=== PATIENT | male | born 2000 | race Caucasian/White ===

== ENCOUNTER 2023-01-10 12:35 | Emergency (ER) | payer OTHER, SELFPAY ==
[2023-01-10 12:51] VITALS: BP 163/98; PULSE 81; RESP 16; TEMP 36.4; O2SAT 100
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
== END 2023-01-10 13:15 | disposition short-term general hospital (02) ==
PROVIDERS: Emergency Provider Nurse Practitioner Family
DX: S30.1XXA Contusion of abdominal wall, initial encounter (principal); V86.09XA Driver of other special all-terrain or other off-road motor vehicle injured in traffic accident, initial encounter
CPT/HCPCS: 81003; 99212; G0463

== ENCOUNTER 2023-01-10 13:32 | Emergency (ER) | payer OTHER, SELFPAY ==
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
[2023-01-10 13:51] VITALS: BP 149/98; PULSE 106; RESP 16; TEMP 36.4; O2SAT 100
[2023-01-10 14:26] LABS: Basophils Absolute Auto 0.1 K/mm3 (0.0-0.1); Basophils Percent Auto 0.6 % (0.2-1.2); Eosinophils Absolute Auto 0.4 K/mm3 (0-0.3); Eosinophils Percent Auto 5.1 % (0-4.4); Hematocrit 45.7 % (42.0-52.0); Hemoglobin 15.8 g/dL (14.0-18.0); Immature Granulocyte Absolute 0.05 K/mm3 (0.00-0.031); Immature Granulocyte Percent A 0.6 % (0-0.5); Lymphocytes Absolute Auto 2.34 K/mm3 (0.9-3.2); Mean Corpuscular HGB Conc 34.6 g/dl (32-36); Mean Corpuscular Hemoglobin 29.5 pg (26-34); Mean Corpuscular Volume 85.4 fl (80-100); Mean Platelet Volume 9.4 fl (7.4-10.4); Monocytes Absolute Auto 0.6 K/mm3 (0.1-0.6); Monocytes Percent Auto 7.8 % (2.6-8.5); Neutrophils Absolute Auto 4.6 K/mm3 (1.3-6.7); Neutrophils Percent Auto 56.9 % (45.5-73.1); Platelet Count Result 232 k/mm3 (150-375); Red Blood Count 5.35 M/mm3 (4.6-6.20); White Blood Count 8.1 K/mm3 (4.5-10.0)
[2023-01-10 14:34] LABS: Appearance Urine Clear (Clear); Bilirubin Urine Negative (Negative); Blood Urine Negative (Negative); Color Urine Yellow (Yellow); Glucose Urine UA Negative (Negative); Ketones Urine Negative (Negative); Leukocyte Esterase Ur Negative LEU/UL (Negative); Nitrate Urine Negative (Negative); Protein Urine Negative (Negative); Specific Grav Ur 1.019 (1.001-1.035); pH Urine 5.5 (5.0-9.0)
[2023-01-10 14:37] LABS: INR 0.9; Partial Thromboplastin Time 25.1 SECONDS (22.3-36.8); Prothrombin Time 12.7 Seconds (11.1-14.7)
[2023-01-10 14:40] LABS: Add Urine Microscopic? NO
[2023-01-10 14:45] LABS: Alanine Aminotransferase 84 U/L (6-50); Albumin Level 4.8 g/dL (3.5-5.1); Alkaline Phosphatase 77 U/L (38-126); Anion Gap 9 mmol/L (8-16); Aspartate Amino Transferase 59 U/L (17-59); Bilirubin,Total 1.8 mg/dL (0.2-1.3); Blood Urea Nitrogen 17 mg/dL (9-20); Calcium 9.1 mg/dL (8.4-10.2); Carbon Dioxide 26 mmol/L (22-30); Chloride 102 mmol/L (98-107); Estimated CRCL calculation 116 ml/min; Estimated Glomerular Filt Rate > 60; Glucose 93 mg/dL (65-110); Potassium 3.7 mmol/L (3.4-5.0); Sodium 137 mmol/L (137-145)
[2023-01-10 15:43] LABS: Lactic Acid Reflex 1.2 mmol/L (0.7-2.0)
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
[2023-01-10 18:30] VITALS: BP 136/73; PULSE 82; RESP 18; O2SAT 100
== END 2023-01-10 19:13 | disposition home or self-care (01) ==
PROVIDERS: Emergency Provider Emergency Medicine
DX: S30.1XXA Contusion of abdominal wall, initial encounter (principal); K76.0 Fatty (change of) liver, not elsewhere classified; V86.55XA Driver of 3- or 4- wheeled all-terrain vehicle (ATV) injured in nontraffic accident, initial encounter
CPT/HCPCS: 36415; 71260; 74177; 80053; 81003; 83605; 85025; 85610; 85730; 86850; 86900; 86901; 99284; Q9967

== ENCOUNTER 2023-03-11 05:19 | Emergency (ER) | payer OTHER, SELFPAY ==
[2023-03-11 05:23] VITALS: BP 151/97; PULSE 86; RESP 14; TEMP 36.2; O2SAT 100
[2023-03-11] MEDS: KETOROLAC 30 MG/ML VIAL (*BKC) IM (08:04)
[2023-03-11 08:45] LABS: Basophils Absolute Auto 0.1 K/mm3 (0.0-0.1); Basophils Percent Auto 0.6 % (0.2-1.2); Eosinophils Absolute Auto 0.8 K/mm3 (0-0.3); Eosinophils Percent Auto 8.7 % (0-4.4); Immature Granulocyte Absolute 0.03 K/mm3 (0.00-0.031); Immature Granulocyte Percent A 0.3 % (0-0.5); Lymphocytes Absolute Auto 2.25 K/mm3 (0.9-3.2); Lymphocytes Percent Auto 25.4 % (18.3-44.2); Mean Corpuscular Hemoglobin 29.5 pg (26-34); Mean Corpuscular Volume 86.6 fl (80-100); Mean Platelet Volume 9.8 fl (7.4-10.4); Monocytes Absolute Auto 0.7 K/mm3 (0.1-0.6); Monocytes Percent Auto 8.2 % (2.6-8.5); Neutrophils Percent Auto 56.8 % (45.5-73.1); Platelet Count Result 222 k/mm3 (150-375); Red Blood Count 5.43 M/mm3 (4.6-6.20); Red Cell Distribution Width 11.6 % (11.5-14.5); White Blood Count 8.9 K/mm3 (4.5-10.0)
[2023-03-11 08:55] LABS: Alanine Aminotransferase 60 U/L (6-50); Albumin Level 4.5 g/dL (3.5-5.1); Alkaline Phosphatase 58 U/L (38-126); Anion Gap 11 mmol/L (8-16); Aspartate Amino Transferase 39 U/L (17-59); Bilirubin,Total 1.4 mg/dL (0.2-1.3); Blood Urea Nitrogen 15 mg/dL (9-20); Calcium 9.4 mg/dL (8.4-10.2); Carbon Dioxide 21 mmol/L (22-30); Chloride 107 mmol/L (98-107); Estimated CRCL calculation 133 ml/min; Estimated Glomerular Filt Rate > 60; Glucose 94 mg/dL (65-110); Potassium 4.2 mmol/L (3.4-5.0); Sodium 139 mmol/L (137-145); Uric Acid 9.2 mg/dL (3.5-8.5)
[2023-03-11 09:16] LABS: Erythrocyte Sedimentation Rate 1 mm/hr (0-20)
--- NOTE | 2023-03-11 09:38 | ED.EXTPRO ---
HPI - Extremity Problem General Chief complaint: Extremity Problem,Nontraumatic Stated complaint: right foot pain Time Seen by Provider: 03/11/23 07:33 History of Present Illness HPI Narrative: Pt presents with non right foot pain without injury. Pt first noticed pain across top of fooot two days ago and then worsenend overnight last night to where covers hurt and pt unable to bear weight on foot. Pt denies fever or other jt pain. Pt has no history of similar. Related Data Allergies Allergy/AdvReac Type Severity Reaction Status Date / Time No Known Allergies Allergy Verified 03/11/23 05:20 Review of Systems Review of Systems: All systems reviewed & are unremarkable except as noted in HPI and below Exam Const: General: healthy appearing Nutritional Appearance: well nourished Orientation/consciousness: patient oriented x3 Limitations: no limitations Resp: Effort & Inspection: normal respiratory effort Cardio: Rate: regular rate Rhythm: regular rhythm GI: GI Palp: Yes Soft to palpation Auscultation: normal bowel sounds Skin: General skin exam: normal color Rashes: no rashes Wounds: no wounds Neuro: General: patient oriented x3, moves all extremities and no focal motor deficits Extrem: General: normal to inspection and no clubbing, cyanosis or edema Other: no swelling or erythema to foot, pulses intact foot pink and warm tender across top of foot at MTP joints but not 1st mtp joint Psych: Mental Status: mental status grossly normal Affect: normal affect Attitude: cooperative Course Vital Signs Vital signs: Vital Signs Temperature 97.2 F L 03/11/23 05:23 Pulse Rate 86 03/11/23 05:23 Respiratory Rate 14 03/11/23 05:23 Blood Pressure 151/97 H 03/11/23 05:23 Pulse Oximetry 100 03/11/23 05:23 Temperature 97.2 F L 03/11/23 05:23 Pulse Rate 88 03/11/23 10:00 Respiratory Rate 16 03/11/23 10:00 Blood Pressure 135/94 H 03/11/23 10:00 Pulse Oximetry 98 03/11/23 10:00 MDM - Extremity (Nontraumatic) MDM Narrative Medical decision making narrative: no definite injury will check x rays and labs. could be gout but not classic presentation. does not appear to be vascular. uric acid elevated other labs and x rays normal. silverio start on indocin and norco and have follow up with podiatry. Lab Data 03/11/23 08:34 03/11/23 08:34 Labs: Lab Results 03/11/23 Range/Units 08:34 WBC 8.9 (4.5-10.0) K/mm3 RBC 5.43 (4.6-6.20) M/mm3 Hgb 16.0 (14.0-18.0) g/dL Hct 47.0 (42.0-52.0) % MCV 86.6 (80-100) fl MCH 29.5 (26-34) pg MCHC 34.0 (32-36) g/dl RDW 11.6 (11.5-14.5) % Plt Count 222 (150-375) k/mm3 MPV 9.8 (7.4-10.4) fl Immature Gran % (Auto) 0.3 (0-0.5) % Neut % (Auto) 56.8 (45.5-73.1) % Lymph % (Auto) 25.4 (18.3-44.2) % Talbot % (Auto) 8.2 (2.6-8.5) % Eos % (Auto) 8.7 H (0-4.4) % Baso % (Auto) 0.6 (0.2-1.2) % Lymph # (Auto) 2.25 (0.9-3.2) K/mm3 Talbot # (Auto) 0.7 H (0.1-0.6) K/mm3 Eos # (Auto) 0.8 H (0-0.3) K/mm3 Baso # (Auto) 0.1 (0.0-0.1) K/mm3 Abs Immat Gran (auto) 0.03 (0.00-0.031) K/mm3 Absolute Neuts (auto) 5.0 (1.3-6.7) K/mm3 Absolute Nucleated RBC 0.0 (0.0-0.012) K/mm3 Nucleated RBC % 0.0 (0.0-0.2) % ESR 1 (0-20) mm/hr Sodium 139 (137-145) mmol/L Potassium 4.2 (3.4-5.0) mmol/L Chloride 107 (98-107) mmol/L Carbon Dioxide 21 L (22-30) mmol/L Anion Gap 11 (8-16) mmol/L BUN 15 (9-20) mg/dL Creatinine 1.10 (0.7-1.3) mg/dL Estim Creat Clear Calc 133 ml/min Estimated GFR > 60 (59 - ) Glucose 94 (65-110) mg/dL Uric Acid 9.2 H (3.5-8.5) mg/dL Calcium 9.4 (8.4-10.2) mg/dL Total Bilirubin 1.4 H (0.2-1.3) mg/dL AST 39 (17-59) U/L ALT 60 H (6-50) U/L Alkaline Phosphatase 58 (38-126) U/L Total Protein 8.0 (6.3-8.2) g/dL Albumin 4.5 (3.5-5.1) g/dL Discharge Plan Discharge Clinical Impression: Arthralgia of ri
[2023-03-11 10:00] VITALS: BP 135/94; PULSE 88; RESP 16; O2SAT 98
== END 2023-03-11 10:00 | disposition home or self-care (01) ==
PROVIDERS: Emergency Provider Emergency Medicine
DX: M25.571 Pain in right ankle and joints of right foot (principal)
CPT/HCPCS: 36415; 73610; 73630; 80053; 84550; 85025; 85652; 96372; 99283; J1885

== ENCOUNTER 2023-06-23 10:54 | Emergency (ER) | payer OTHER, SELFPAY ==
[2023-06-23] VITALS (30 sets, daily range): BP systolic 123–148; BP diastolic 72–96; PULSE 107–127; RESP 16–40; TEMP 36.9; O2SAT 96–100
--- NOTE | ~2023-06-23 | NM_ITS ---
NM lung vent and perfusion INDICATION: Pulmonary embolism. Chest pain. TECHNIQUE: The patient inhaled aerosolized 19.6 mCi xenon-133. Following ventilation scan, 5.5 mCi T c 99m MAA was injected intravenously for perfusion images. Multiple images were then acquired. COMPARISON: Chest x-ray dated 06/23/2023 FINDINGS: The comparison chest radiograph demonstrates no pulmonary infiltrates or pleural fluid. The re is a small ventilation/perfusion mismatch in the right lower lobe. IMPRESSION: 1: Low probability for pulmonary embolism. Reviewed, dictated and finalized at location B. O MECHANIC APPRENTICE
--- NOTE | ~2023-06-23 | XR_ITS ---
EXAMINATION: XR chest 2V 06/23/2023 12:33 INDICATION: Chest pain PROCEDURE: 2 view chest COMPARISON: No prior studies for comparison. FINDINGS: The lungs are clear. The cardiomediastinal silhouette is within normal limits. There are no pleural effusions. There is no pneumothorax suspected. IMPRESSION: 1: NO ACUTE CARDIOPULMONARY DISEASE. Reviewed, dictated and finalized at location B. CARVER HAND
--- NOTE | ~2023-06-23 | CT_ITS ---
EXAMINATION: CTA chest PE abdomen pel DATE: 06/23/2023 14:04 [employer] INDICATION: Pulmonary embolism. TECHNIQUE: Computed tomographic angiography (CTA) of the chest, abdomen, and pelvis was performed wit h 100 cc Omnipaque 350with 100 mL Omnipaque-350 intravenous contrast. The dose-length product was 372 9.78 mGy-cm. Maximum intensity projection 3D-reconstructions of the aorta and other arteries were con structed by the technologist on a separate workstation. Automated exposure control and iterative reconstruction technique were employed. COMPARISON: CT dated 01/10/2023 FINDINGS: CHEST CTA: Study is nondiagnostic for evaluation of pulmonary embolism. There is residual thymic tissue in the a nterior mediastinum. There is bilateral gynecomastia. No evidence for aortic aneurysm or dissection. No thoracic lymphadenopathy. There is an accessory splenule. No focal airspace consolidation. No pneu mothorax. No endobronchial lesions. ABDOMEN AND PELVIS CTA: Fatty infiltration of the liver. Gallbladder is present. The spleen, pancreas, adrenal glands and kid neys are unremarkable. There are accessory splenules. Nonobstructive bowel gas pattern. No significan t vascular abnormality. No lymphadenopathy. No free air or free fluid. No acute osseous abnormality. IMPRESSION: 1. Nondiagnostic study for evaluation of pulmonary embolism. No acute abnormality of the chest, abdom en or pelvis. Reviewed, dictated and finalized at location B. PROFESSIONALS IMPRESSION: 1. Nondiagnostic study for evaluation of pulmonary embolism. No acute abnormali ty of the chest, abdomen or pelvis.
--- NOTE | 2023-06-23 11:01 | ECG_ITS ---
Measurements Intervals [place] Rate: 120 P: 51 MS: 136 QRS: 55 QRSD: 75 T: 32 QT: 275 QTc: 389 Interpretive Statements SINUS TACHYCARDIA NO PREVIOUS ECG AVAILABLE FOR COMPARISON Electronically Signed On 06-23-2023 20:59:46 TYPE PHOTOGRAPHY SUPERVISOR by Peterson Moreno M.D.
--- NOTE | 2023-06-23 11:58 | ED.ABDPAIN ---
HPI - Abdominal Pain General Chief Complaint: Abdominal Pain Stated Complaint: abd pain, hematuria Time Seen by Provider: 06/23/23 11:56 History of Present Illness HPI narrative: Patient is a 23-year-old male here with multiple symptoms including abdominal pain, diarrhea, hematuria, chest pain, shortness of breath. He states that all the symptoms began on Val[place]. He notes that he was initially having some diffuse cramping abdominal pain associated with multiple episodes of diarrhea. This is not bloody. He notes he does have a history with some ongoing loose stools for which she takes fiber supplements that usually helps. He denies any fever chills. He denies any known sick contacts. On the 1st day of illness he additionally noted that he was having some chest tightness over the left side of his chest associated with some shortness of breath. He denies cough or congestion. He notes that the chest pain seems to have improved however he does continue to have a little bit of shortness of breath which she describes as difficulty taking a deep breath. He did take some Imodium yesterday which seems to have helped his diarrhea. His last episode of loose stools was yesterday. He did have 1 episode of emesis which occurred today while he was in the emergency department after getting an IV placed. He is not currently feeling nauseous. They did notice that he was having hematuria which she notes was orange in color and this prompted him to be seen in the emergency department. Related Data Allergies Allergy/AdvReac Type Severity Reaction Status Date / Time No Known Allergies Allergy Verified 03/11/23 05:20 Review of Systems Review of Systems: All systems reviewed & are unremarkable except as noted in HPI and below Exam Narrative: GENERAL: Well-appearing, well-nourished, and in no acute distress. HEAD: Normocephalic, atraumatic. EYES: PERRLA and EOMI. ENT: Nares clear. Mucous membranes moist. NECK: Supple. CHEST: Clear to auscultation. No respiratory distress. HEART: Regular rate and rhythm. Normal peripheral pulses. ABDOMEN: Soft, diffuse mild tenderness with no rebound or guarding. No CVA tenderness. Nondistended. EXTREMITIES: Normal range of motion. No edema. SKIN: Warm, dry, no rash. NEURO: No focal deficits. Alert and oriented x3. PSYCH: Normal mood and affect. Course Course Emergency Course: Chart review performed. Patient here for abdominal pain, diarrhea, hematuria, chest pain. Triage vitals show HTN, tachycardia. Last ED visit here was in February 2023 for ankle pain. Patient seen evaluated, nontoxic appearing. He is tachycardic and is having a multitude of symptoms. Will do cardiac workup as well as screening D-dimer, abdominal pain lab work. IV fluids ordered. D-dimer elevated, will to CTA of chest in addition to CT abdomen pelvis. CBC grossly unremarkable, CMP grossly unremarkable, bilirubin 1.5 however this seems to be in a normal range for him. Troponin negative. Lipase normal. COVID, influenza, RSV negative. Pending imaging and UA. CTA chest abdomen pelvis non diagnostic for PE, will rescan. CT abdomen pelvis negative. VQ scan negative for PE. UA negative for UTI, no blood or RBCs in urine. Patient reevaluated feeling much better after IVF. Will discharge home with PCP follow up. The results of pertinent diagnostic studies and exam findings were discussed. The patient?s provisional diagnosis and plan of care were discussed with the patient and present family. The patient and/or present family expressed understanding of the diagnosis and plan. The nurse was instructed to provide written instructions and appropriate follow-up information. The patient understands their need and responsibility to obtain additional follow-up as instructed. The risks of medications administered and prescribed were discussed with the patient and family present. Vital Signs Vital signs: Vital Signs Temperature 98.4
[2023-06-23 12:34] LABS: Basophils Percent Auto 0.2 % (0.2-1.2); Eosinophils Absolute Auto 0.4 K/mm3 (0-0.3); Eosinophils Percent Auto 3.7 % (0-4.4); Hematocrit 51.7 % (42.0-52.0); Hemoglobin 17.5 g/dL (14.0-18.0); Immature Granulocyte Absolute 0.04 K/mm3 (0.00-0.031); Immature Granulocyte Percent A 0.4 % (0-0.5); Lymphocytes Absolute Auto 0.73 K/mm3 (0.9-3.2); Lymphocytes Percent Auto 7.6 % (18.3-44.2); Mean Corpuscular HGB Conc 33.8 g/dl (32-36); Mean Corpuscular Hemoglobin 28.9 pg (26-34); Mean Corpuscular Volume 85.3 fl (80-100); Mean Platelet Volume 9.3 fl (7.4-10.4); Monocytes Absolute Auto 0.5 K/mm3 (0.1-0.6); Monocytes Percent Auto 5.1 % (2.6-8.5); Platelet Count Result 220 k/mm3 (150-375); Red Blood Count 6.06 M/mm3 (4.6-6.20); Red Cell Distribution Width 11.9 % (11.5-14.5); White Blood Count 9.6 K/mm3 (4.5-10.0)
[2023-06-23] MEDS: SODIUM CHLORIDE 0.9% IV 1,000 ML 999 ML IV CONT ×3 (12:40→15:03)
[2023-06-23 12:45] LABS: Lactic Acid Reflex 1.3 mmol/L (0.7-2.0)
[2023-06-23 12:46] LABS: Alanine Aminotransferase 37 U/L (6-50); Albumin Level 4.7 g/dL (3.5-5.1); Alkaline Phosphatase 69 U/L (38-126); Anion Gap 12 mmol/L (8-16); Aspartate Amino Transferase 31 U/L (17-59); Bilirubin,Total 1.5 mg/dL (0.2-1.3); Blood Urea Nitrogen 17 mg/dL (9-20); Calcium 9.4 mg/dL (8.4-10.2); Carbon Dioxide 25 mmol/L (22-30); Chloride 102 mmol/L (98-107); Creatine Kinase 111 U/L (55-170); Estimated CRCL calculation 111 ml/min; Estimated Glomerular Filt Rate > 60; Glucose 111 mg/dL (65-110); Lipase 48 U/L (23-300); Magnesium 1.9 mg/dL (1.6-2.3); Potassium 4.3 mmol/L (3.4-5.0); Sodium 139 mmol/L (137-145)
[2023-06-23 12:51] LABS: Prothrombin Time 13.5 Seconds (11.1-14.7)
[2023-06-23 12:52] LABS: Partial Thromboplastin Time 28.7 SECONDS (22.3-36.8)
[2023-06-23 12:58] LABS: Troponin I < 0.012 ng/mL (0.000-0.034)
--- NOTE | 2023-06-23 13:06 | PC.NURSE ---
pt is unable to void at this time but would like time to produce urine. pt has iv fluids infusing and is educated on using call light when they have the urge to urinate. no further orders at this time.
[2023-06-23 13:09] LABS: D Dimer 0.69 ug/mL (<0.48)
[2023-06-23 13:10] LABS: Influenza A QL RT-PCR Negative (Negative); Influenza B QL RT-PCR Negative (Negative); RSV RNA, RT-PCR Negative (Negative); SARS-CoV-2 RNA PCR Negative (Negative)
[2023-06-23 14:48] LABS: Appearance Urine Clear (Clear); Bacteria Urine None Seen /hpf; Bilirubin Urine Negative (Negative); Blood Urine Negative (Negative); Color Urine Yellow (Yellow); Glucose Urine UA Negative (Negative); Hyaline Casts Urine Present /lpf; Ketones Urine Negative (Negative); Leukocyte Esterase Ur Negative LEU/UL (Negative); Need Manual Microscopic Reviewed; Nitrate Urine Negative (Negative); Protein Urine Trace mg/dL (Negative); RBC Urine 0-2 /hpf (0-2); Specific Grav Ur 1.025 (1.001-1.035); Squamous Epithelial Cell Urine None seen /hpf (Few); Urobilinogen Urine 0.2 mg/dL (<2.0); WBC Urine 0-5 /hpf; pH Urine 5.5 (5.0-9.0)
[2023-06-23 14:49] LABS: Add Urine Microscopic? YES
== END 2023-06-23 16:28 | disposition home or self-care (01) ==
PROVIDERS: Emergency Provider Student in an Organized Health Care Education/Training Program
DX: R07.89 Other chest pain (principal); R19.7 Diarrhea, unspecified; R10.9 Unspecified abdominal pain; Z20.822 Contact with and (suspected) exposure to COVID-19
CPT/HCPCS: 36415; 71046; 71275; 74177; 78582; 80053; 81001; 82550; 83605; 83690; 83735; 84484; 85025; 85380; 85610; 85730; 87637; 93005; 96360; 96361; 99284; A9540; A9558; J7030; Q9967